=== PATIENT | female | born 1990 | race Hispanic/Latino ===

== ENCOUNTER 2017-01-18 11:22 | Emergency (ER) | payer OTHER ==
[~2017-01-18] VITALS: Ht 165.1 cm; Wt 56.3 kg
[2017-01-18] MEDS ORDERED: CLAR10CA3 PO (11:37)
[2017-01-18] MEDS ORDERED: SING10TA32 PO (11:37)
[2017-01-18] MEDS ORDERED: CALCTAB41 PO (11:37)
[2017-01-18] MEDS ORDERED: NS 1,000 ML IV ONE (11:45)
[2017-01-18 12:08] LABS: BASO % 0.2 % (0.0-1.0); EOS # 0.1 K/mm3 (0.0-0.50); EOS % 1.4 % (0.0-3.0); LARGE UNSTAINED CELL # 0.1 K/mm3 (0.0-0.4); LARGE UNSTAINED CELL % 1.1 % (0.0-4.0); LYMPH # 1.1 K/mm3 (1.5-6.5); LYMPH % 13.7 % (24.0-44.0); MEAN CORPUSCULAR HEMOGLOBIN 29.8 pg (27.0-33.0); MEAN CORPUSCULAR HGB CONC 33.4 g/dl (32.0-36.5); MEAN CORPUSCULAR VOLUME 89.2 fl (80.0-96.0); MONO # 0.4 K/mm3 (0.0-0.8); MONO % 4.6 % (0.0-5.0); NEUTROPHILS # 6.3 K/mm3 (1.8-7.7); PLATELET COUNT, AUTOMATED 216 k/mm3 (150-450); RED CELL DISTRIBUTION WIDTH 12.7 % (11.5-14.5)
[2017-01-18 12:13] LABS: CONTROL LINE HCG INT CTR LINE PRESENT
[2017-01-18 12:16] LABS: ANION GAP 6 MEQ/L (8-16); BLOOD UREA NITROGEN 11 MG/DL (7-18); CALCIUM LEVEL 8.7 MG/DL (8.5-10.1); CARBON DIOXIDE LEVEL 28 MEQ/L (21-32); CHLORIDE LEVEL 106 MEQ/L (98-107); CREATININE FOR GFR 0.84 MG/DL (0.55-1.02); GLOMERULAR FILTRATION RATE > 60.0 (>60); GLUCOSE, FASTING 87 MG/DL (70-105); POTASSIUM SERUM 3.7 MEQ/L (3.5-5.1); SODIUM LEVEL 140 MEQ/L (136-145)
--- NOTE | 2017-01-18 13:46 | REP ---
CHEST, TWO VIEWS: There is no evidence of acute infiltrate. No pleural effusion is seen. The heart is normal in size. The mediastinal silhouette is unremarkable. The visualized osseous structures are intact. IMPRESSION: No acute pulmonary disease. Signed by Mookie Pierce MD 01/18/2017 03:31 P
[2017-01-18 14:43] VITALS: O2SAT 98
[2017-01-18 14:49] VITALS: BP 109/65
--- NOTE | 2017-01-20 02:13 | ECGEPIP ---
Stationary ECG Study [facility] - ED Test Date: 2017-01-18 Pat Name: CASPER BRUNO Department: Room: - Gender: F Account Manager B2B: dennis : 1990 Requested By: Nohemy Mejia Order Number: [id number] Reading MD: Ricardo Reed Measurements Intervals [place] Rate: 50 P: 43 RI: 126 QRS: 53 QRSD: 85 T: 43 QT: 410 QTc: 377 Interpretive Statements SINUS BRADYCARDIA BENIGN EARLY REPLARIZATION NO PRIORS Electronically Signed On 01-20-2017 2:13:39 EDT by Ricardo Reed
== END 2017-01-18 14:51 | disposition home or self-care (01) ==
LOC: EDBD 11:22 → M ED 11:22
DX: R07.81 Pleurodynia (principal); R00.1 Bradycardia, unspecified; Z82.49 Family history of ischemic heart disease and other diseases of the circulatory system; Z84.89 Family history of other specified conditions; Z79.899 Other long term (current) drug therapy

== ENCOUNTER 2017-03-09 09:44 | Inpatient (IN) | payer OTHER ==
[~2017-03-09] VITALS: Ht 165.1 cm; Wt 132.0 kg
[~2017-03-09 09:44] MED LIST: CALCTAB41 PO; CLAR10CA3 PO; SING10TA32 PO
[2017-03-09] MEDS ORDERED: NAPR500T3 PO (09:54)
[2017-03-09] MEDS ORDERED: MULT1TAB10 PO (09:54)
[2017-03-09] MEDS ORDERED: CLAR1TAB2 PO (09:54)
[2017-03-09 11:13] LABS: MEAN CORPUSCULAR HEMOGLOBIN 31.7 pg (27.0-33.0); MEAN CORPUSCULAR HGB CONC 34.6 g/dl (32.0-36.5); MEAN CORPUSCULAR VOLUME 91.4 fl (80.0-96.0); RED CELL DISTRIBUTION WIDTH 12.6 % (11.5-14.5); WHITE BLOOD COUNT 5.3 K/mm3 (4.0-10.0)
[2017-03-09 11:28] LABS: METHADONE URINE NEGATIVE (NEGATIVE)
[2017-03-09 11:36] LABS: ALBUMIN 3.9 GM/DL (3.2-5.2); ALBUMIN/GLOBULIN RATIO 1.18 (1.00-1.93); ALKALINE PHOSPHATASE 81 U/L (45-117); ALT/SGPT 40 U/L (12-78); ANION GAP 7 MEQ/L (8-16); AST/SGOT 16 U/L (15-37); BILIRUBIN,DIRECT < 0.1 MG/DL (0.0-0.2); BILIRUBIN,TOTAL 0.3 MG/DL (0.2-1.0); BLOOD UREA NITROGEN 16 MG/DL (7-18); CALCIUM LEVEL 8.7 MG/DL (8.5-10.1); CARBON DIOXIDE LEVEL 29 MEQ/L (21-32); CHLORIDE LEVEL 107 MEQ/L (98-107); CREATININE FOR GFR 0.83 MG/DL (0.55-1.02); GLOMERULAR FILTRATION RATE > 60.0 (>60); GLUCOSE, FASTING 86 MG/DL (70-105); SODIUM LEVEL 143 MEQ/L (136-145); TOTAL PROTEIN 7.2 GM/DL (6.4-8.2)
[2017-03-09 12:23] LABS: CONTROL LINE HCG INT CTR LINE PRESENT
[2017-03-09] MEDS ORDERED: MAALOX 30 ML SUSP *UDC PO PRN (14:30)
[2017-03-09] MEDS ORDERED: ACETAMINOPHEN TAB 650MG DOSE (2X325MG) PO PRN (14:30)
[2017-03-09] MEDS ORDERED: MOM 30ML SUSPENSION UDC PO PRN (14:30)
[2017-03-09] MEDS ORDERED: LORazepam 1 MG TAB PO PRN (14:30)
[2017-03-09] MEDS ORDERED: traZODone 50 MG TAB PO PRN (14:30)
[2017-03-09 15:35] VITALS: BP 105/55
[2017-03-10 06:47] VITALS: BP 107/53
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
[2017-03-10 18:00] VITALS: BP 97/52
--- NOTE | 2017-03-11 03:10 | HPE ---
DATE OF ADMISSION: 03/09/2017 HISTORY OF PRESENT ILLNESS: Please refer to psychiatric history and evaluation for further details on this admission. This examination and history is intended for medical issues, which may need treatment, followup or consult on this 26-year-old female. ALLERGIES: No known allergies. PRIMARY CARE PROVIDER: She uses [facility] or [facility]. 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 Ethyl alcohol (EtOH) none. Smokes none. Recreational drug use none. PAST MEDICAL HISTORY: Seasonal allergies. PAST SURGICAL HISTORY: Negative. HOME MEDICATIONS: - loratadine 10 mg by mouth daily - Multivite one by mouth daily FAMILY HISTORY: Noncontributory. LABORATORY STUDIES: CBC was normal. Electrolytes normal. BUN and creatinine 16 and 0.83. Toxicology negative. REVIEW OF SYSTEMS: 10-system review was done, other than seasonal allergies, was unremarkable. She had no complaints. PHYSICAL EXAMINATION: 26-year-old cooperative female in no acute distress. Height 65 inches, weight 60 kg. Blood pressure 105/55, pulse 54, respirations 16, temperature 98. Patient is alert and oriented times three. Pupils equal and react to light. Extraocular muscles intact. Cornea and sclerae clear. Conjunctivae were normal. No facial asymmetry. Pharynx, tongue and gums pink and moist. Tongue is midline. Neck is supple without lymphadenopathy. No thyromegaly, no goiter. Chest clear to auscultation without wheeze or retraction. Heart is regular. Abdomen is benign. Bowel sounds positive. Genitourinary/rectal: Not done. Extremities: Show equal strength, full range of motion. No cyanosis, clubbing or edema. Peripheral pulses equal and palpable bilaterally. Skin is warm and dry. Cranial nerves III-XII grossly intact. IMPRESSION/PLAN: Psychiatric plan per psychiatry. Will continue her loratadine 10 mg by mouth daily for allergies. No other acute medical issues.
[2017-03-11 06:38] VITALS: BP 108/55
[2017-03-11] MEDS: LORATADINE 10 MG TAB PO SCH (09:00)
[2017-03-11 18:00] VITALS: BP 102/57
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
[2017-03-12 06:25] VITALS: BP 106/58
[2017-03-12] MEDS: LORATADINE 10 MG TAB PO SCH (09:00)
[2017-03-12 18:00] VITALS: BP 96/52
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
[2017-03-13 06:50] VITALS: BP 93/58
[2017-03-13] MEDS: LORATADINE 10 MG TAB PO SCH (09:00)
[2017-03-13] MEDS ORDERED: TRAZO50TA PO (09:50)
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
== END 2017-03-13 12:00 | disposition home or self-care (01) | DRG 885 ==
LOC: M ED 09:44 → M ED INP 14:14 → MERGE 14:14 → M PSY 15:03
PROVIDERS: ADMIT Psychiatry & Neurology Psychiatry; ATTEND Psychiatry & Neurology Psychiatry
DX: F39 Unspecified mood [affective] disorder (principal); F31.81 Bipolar II disorder; F60.89 Other specific personality disorders; Z79.899 Other long term (current) drug therapy

== ENCOUNTER 2017-04-13 08:03 | Emergency (ER) | payer OTHER ==
[~2017-04-13] VITALS: Ht 165.1 cm; Wt 60.5 kg
[~2017-04-13 08:03] MED LIST changes: +CLAR1TAB2 PO; +MULT1TAB10 PO; +NAPR500T3 PO; +TRAZO50TA PO
[2017-04-13 10:15] LABS: BASO % 0.2 % (0.0-1.0); EOS # 0.2 10^3/uL (0.0-0.50); EOS % 2.2 % (0.0-3.0); IMMATURE GRANULOCYTE % 0.2 % (0-0); LYMPH # 1.1 10^3/uL (1.5-6.5); LYMPH % 12.8 % (24.0-44.0); MEAN CORPUSCULAR HEMOGLOBIN 30.3 pg (27.0-33.0); MEAN CORPUSCULAR HGB CONC 33.6 g/dl (32.0-36.5); MEAN CORPUSCULAR VOLUME 90.1 fl (80.0-96.0); MONO # 0.7 10^3/uL (0.0-0.8); MONO % 8.8 % (0.0-5.0); NEUTROPHILS # 6.3 10^3/uL (1.8-7.7); NEUTROPHILS % 75.8 % (36.0-66.0); PLATELET COUNT, AUTOMATED 242 10^3/uL (150-450); RED CELL DISTRIBUTION WIDTH 12.4 % (11.5-14.5); WHITE BLOOD COUNT 8.3 10^3/uL (4.0-10.0)
[2017-04-13] MEDS ORDERED: CEPA5.4L2 MT (10:40)
[2017-04-13] MEDS ORDERED: BENZ100C5 PO (10:40)
[2017-04-13] MEDS ORDERED: IBUP-1022 PO (10:41)
[2017-04-13 11:13] VITALS: BP 124/72
== END 2017-04-13 11:14 | disposition home or self-care (01) ==
LOC: M ED 08:03
DX: J06.9 Acute upper respiratory infection, unspecified (principal); Z79.899 Other long term (current) drug therapy

== ENCOUNTER 2017-05-26 08:26 | Emergency (ER) | payer OTHER ==
[~2017-05-26] VITALS: Ht 167.6 cm; Wt 58.1 kg
[~2017-05-26 08:26] MED LIST changes: +BENZ100C5 PO; +CEPA5.4L2 MT; +IBUP-1022 PO
[2017-05-26 09:36] LABS: BASO % 0.3 % (0.0-1.0); EOS # 0.1 10^3/uL (0.0-0.50); EOS % 1.3 % (0.0-3.0); IMMATURE GRANULOCYTE % 0.2 % (0-0); LYMPH # 1.8 10^3/uL (1.5-6.5); LYMPH % 30.9 % (24.0-44.0); MEAN CORPUSCULAR HEMOGLOBIN 29.6 pg (27.0-33.0); MEAN CORPUSCULAR HGB CONC 33.4 g/dl (32.0-36.5); MEAN CORPUSCULAR VOLUME 88.6 fl (80.0-96.0); MONO # 0.6 10^3/uL (0.0-0.8); MONO % 9.7 % (0.0-5.0); NEUTROPHILS # 3.4 10^3/uL (1.8-7.7); NEUTROPHILS % 57.6 % (36.0-66.0); PLATELET COUNT, AUTOMATED 237 10^3/uL (150-450); RED CELL DISTRIBUTION WIDTH 12.3 % (11.5-14.5)
[2017-05-26 09:54] LABS: CONTROL LINE HCG INT CTR LINE PRESENT
[2017-05-26 10:02] LABS: ALBUMIN/GLOBULIN RATIO 1.03 (1.00-1.93); ALKALINE PHOSPHATASE 85 U/L (45-117); ALT/SGPT 22 U/L (12-78); ANION GAP 7 MEQ/L (8-16); AST/SGOT 16 U/L (7-37); BILIRUBIN,DIRECT 0.1 MG/DL (0.0-0.2); BILIRUBIN,TOTAL 0.4 MG/DL (0.2-1.0); BLOOD UREA NITROGEN 13 MG/DL (7-18); CALCIUM LEVEL 9.1 MG/DL (8.5-10.1); CARBON DIOXIDE LEVEL 27 MEQ/L (21-32); CHLORIDE LEVEL 105 MEQ/L (98-107); CREATININE FOR GFR 0.85 MG/DL (0.55-1.02); GLOMERULAR FILTRATION RATE > 60.0 (>60); GLUCOSE, FASTING 95 MG/DL (70-105); POTASSIUM SERUM 4.2 MEQ/L (3.5-5.1); SODIUM LEVEL 139 MEQ/L (136-145); TOTAL PROTEIN 7.9 GM/DL (6.4-8.2)
[2017-05-26 12:38] VITALS: BP 111/69
[2017-05-26] MEDS ORDERED: ONDA4INJ48 IM (12:43)
[2017-05-26] MEDS ORDERED: NAPR500T3 PO (12:43)
--- NOTE | 2017-05-26 12:46 | REP ---
NON-OB PELVIC ULTRASOUND: HISTORY: Abdominal pain. The uterus is normal in size. The uterus measures 5.2 cm in transverse x 3.9 cm in AP x 8 cm in cephalocaudal dimensions. The endometrium measures 11.3 mm. The right ovary measures 4.3 x 2.5 x 2.9 cm. The left ovary measures 3.7 x 2.8 x 2.9 cm. A mild amount of fluid is present in the cul-de-sac. There are no filling defects in the urinary bladder. IMPRESSION: There is a mild amount of fluid in the cul-de-sac. Signed by Mike Ann MD 05/26/2017 01:19 P
[2017-05-26] MEDS ORDERED: ZOFR4TAB3 PO (12:51)
== END 2017-05-26 12:53 | disposition home or self-care (01) ==
LOC: M ED 08:26
DX: N94.6 Dysmenorrhea, unspecified (principal); Z79.899 Other long term (current) drug therapy

== ENCOUNTER 2017-05-30 18:46 | Emergency (ER) | payer OTHER ==
[~2017-05-30] VITALS: Ht 167.6 cm; Wt 56.8 kg
[~2017-05-30 18:46] MED LIST changes: +ONDA4INJ48 IM; +ZOFR4TAB3 PO
[2017-05-30] MEDS ORDERED: IBUP-1114 PO (18:55)
[2017-05-30] MEDS ORDERED: TYLE325T5 PO (18:55)
[2017-05-30 21:12] VITALS: BP 115/72
--- NOTE | 2017-05-31 08:13 | REP ---
Bilateral ribs four views: There is no rib fracture or other rib abnormality on the right on the left. PA chest: There is no pneumothorax, hemothorax or pulmonary contusion. Lung stanley are clear. Cardiac size is normal. The jamal, mediastinum, and bony thorax are unremarkable. There is no change from the comparison study dated 01/18/2017. Impression: Negative PA chest. Signed by Mookie Alejandre MD 05/31/2017 08:05 A
== END 2017-05-30 21:05 | disposition home or self-care (01) ==
LOC: M ED 18:46
DX: S20.211A Contusion of right front wall of thorax, initial encounter (principal); S20.212A Contusion of left front wall of thorax, initial encounter; Y04.8XXA Assault by other bodily force, initial encounter; Y92.139 Unspecified place military base as the place of occurrence of the external cause; Y93.89 Activity, other specified; Y99.8 Other external cause status

== ENCOUNTER 2017-08-05 18:59 | Emergency (ER) | payer OTHER | END 2017-08-05 22:45 | disposition left against medical advice (07) | LOC: M ED 18:59 | DX: R29.6 Repeated falls (principal); Z53.21 Procedure and treatment not carried out due to patient leaving prior to being seen by health care provider ==

== ENCOUNTER 2017-08-06 06:37 | Emergency (ER) | payer OTHER ==
[2017-08-06 08:19] LABS: KETONE, URINE AUTO RFX NEGATIVE (NEGATIVE); LEUKOCYTE ESTERASE UR AUTO RFX NEGATIVE (NEGATIVE); MUCUS, URINE RFX SMALL (NEGATIVE); NITRITE, URINE AUTO RFX NEGATIVE (NEGATIVE); RBC, URINE AUTO RFX 2 /HPF (0-3); SPECIFIC GRAVITY UR AUTO RFX 1.019 (1.002-1.035); SQUAM EPITHELIAL CELL UR AURFX 3 /HPF (0-6); WBC, URINE AUTO RFX 0 /HPF (0-3)
== END 2017-08-06 10:19 | disposition home or self-care (01) ==
LOC: M ED 06:37
DX: O9A.211 Injury, poisoning and certain other consequences of external causes complicating pregnancy, first trimester (principal); S30.0XXA Contusion of lower back and pelvis, initial encounter; S33.8XXA Sprain of other parts of lumbar spine and pelvis, initial encounter; W01.0XXA Fall on same level from slipping, tripping and stumbling without subsequent striking against object, initial encounter; Y92.89 Other specified places as the place of occurrence of the external cause; Z3A.09 9 weeks gestation of pregnancy
CPT/HCPCS: 76801

== ENCOUNTER 2017-11-03 16:02 | Emergency (ER) | payer OTHER | END 2017-11-03 19:03 | disposition home or self-care (01) | LOC: M ED 16:02 | DX: S40.021A Contusion of right upper arm, initial encounter (principal); S40.022A Contusion of left upper arm, initial encounter; S30.1XXA Contusion of abdominal wall, initial encounter; Y04.8XXA Assault by other bodily force, initial encounter; Y07.01 Husband, perpetrator of maltreatment and neglect; Y92.009 Unspecified place in unspecified non-institutional (private) residence as the place of occurrence of the external cause; Z3A.21 21 weeks gestation of pregnancy | CPT/HCPCS: 76816 ==

== ENCOUNTER 2017-12-28 19:52 | Outpatient (CLI) | payer OTHER | END 2017-12-28 20:40 | disposition home or self-care (01) | LOC: M LDO 19:52 | DX: O26.893 Other specified pregnancy related conditions, third trimester (principal); Z3A.29 29 weeks gestation of pregnancy | CPT/HCPCS: G0463 ==

== ENCOUNTER 2018-01-19 11:33 | Outpatient (CLI) | payer OTHER | END 2018-01-19 12:47 | disposition home or self-care (01) | LOC: M LDO 11:33 | DX: O26.853 Spotting complicating pregnancy, third trimester (principal); Z3A.32 32 weeks gestation of pregnancy | CPT/HCPCS: 59025 ==

== ENCOUNTER 2018-01-21 15:03 | Outpatient (CLI) | payer OTHER | END 2018-01-21 16:30 | disposition home or self-care (01) | LOC: M LDO 15:03 | DX: O47.03 False labor before 37 completed weeks of gestation, third trimester (principal); Z3A.33 33 weeks gestation of pregnancy; Z63.0 Problems in relationship with spouse or partner | CPT/HCPCS: 59025 ==

== ENCOUNTER 2018-02-15 09:18 | Outpatient (CLI) | payer OTHER ==
[2018-02-15 10:40] LABS: HEMATOCRIT 32.6 % (36.0-47.0); HEMOGLOBIN 11.2 g/dl (12.0-15.5); MEAN CORPUSCULAR HEMOGLOBIN 31.8 pg (27.0-33.0); MEAN CORPUSCULAR HGB CONC 34.4 g/dl (32.0-36.5); MEAN CORPUSCULAR VOLUME 92.6 fl (80.0-96.0); PLATELET COUNT, AUTOMATED 184 10^3/uL (150-450); RED BLOOD COUNT 3.52 10^6/uL (4.00-5.40); RED CELL DISTRIBUTION WIDTH 12.8 % (11.5-14.5); WHITE BLOOD COUNT 7.6 10^3/uL (4.0-10.0)
== END 2018-02-15 11:50 | disposition home or self-care (01) ==
LOC: M LDO 09:18
DX: Z04.3 Encounter for examination and observation following other accident (principal); W10.8XXA Fall (on) (from) other stairs and steps, initial encounter; Y92.89 Other specified places as the place of occurrence of the external cause; Y93.89 Activity, other specified; Y99.8 Other external cause status; Z3A.37 37 weeks gestation of pregnancy
CPT/HCPCS: 59025

== ENCOUNTER 2018-03-05 02:00 | Inpatient (IN) | payer OTHER ==
[2018-03-05] MEDS: PENICILLIN G POTASSIUM IV 5 MU in D5W MINI-BAG PLUS 100 ML IV (03:25)
[2018-03-05 03:34] LABS: HEMATOCRIT 34.1 % (36.0-47.0); HEMOGLOBIN 11.8 g/dl (12.0-15.5); MEAN CORPUSCULAR HEMOGLOBIN 31.4 pg (27.0-33.0); MEAN CORPUSCULAR HGB CONC 34.6 g/dl (32.0-36.5); MEAN CORPUSCULAR VOLUME 90.7 fl (80.0-96.0); PLATELET COUNT, AUTOMATED 206 10^3/uL (150-450); RED BLOOD COUNT 3.76 10^6/uL (4.00-5.40); RED CELL DISTRIBUTION WIDTH 12.7 % (11.5-14.5); WHITE BLOOD COUNT 11.8 10^3/uL (4.0-10.0)
[2018-03-05] MEDS: LR 1,000 ML IV ×4 (06:22→17:15)
[2018-03-05] MEDS ORDERED: OXYTOCIN 30 UNITS IN 0.9% NaCl 500ML IV BAG (J2590) As Ordered (06:28)
[2018-03-05] MEDS: OXYTOCIN DRIP 30 UNITS in APPROPRIATE DILUENT 1 EA IV (06:54)
[2018-03-05] MEDS ORDERED: TERBUTALINE SULFATE 1 MG/ML VIAL (J3105) As Ordered (07:25)
[2018-03-05] MEDS ORDERED: PENICILLIN G POTASSIUM IV 2.5 MU in APPROPRIATE DILUENT 1 EA IV (07:30)
[2018-03-05] MEDS ORDERED: dexameTHASONE 4 MG/ML 1ML VIAL (J1100) As Ordered (07:57)
[2018-03-05] MEDS ORDERED: OXYTOCIN INJ 10 UNITS/ML VIAL (J2590) As Ordered ×5 (07:57→08:00)
[2018-03-05] MEDS ORDERED: ONDANSETRON 4MG/2ML VIAL (J2405) As Ordered (07:57)
[2018-03-05] MEDS ORDERED: SUCCINYLCHOLINE 100 MG/5 ML SYRINGE (J0330) As Ordered (07:57)
[2018-03-05] MEDS ORDERED: KETOROLAC 60 MG/2 ML VIAL (J1885) As Ordered (07:57)
[2018-03-05] MEDS ORDERED: ROCURONIUM BROMIDE 50 MG/5 ML VIAL As Ordered (07:57)
[2018-03-05] MEDS ORDERED: MIDAZOLAM INJ 2 MG/2 ML VIAL (J2250) As Ordered ×2 (07:57→08:13)
[2018-03-05] MEDS ORDERED: fentaNYL 100 MCG/2 ML INJECTION (J3010) As Ordered (07:57)
[2018-03-05] MEDS ORDERED: ePHEDrine SULFATE 25 MG/5 ML(5MG/ML) SYRINGE As Ordered (08:06)
[2018-03-05 08:09] LABS: CORD GAS ABE A -4.7; CORD GAS HCO3 A 25.5 MEQ/L; CORD GAS O2 SAT A 48.3 %; CORD GAS PCO2 A 71.4 mmHg; CORD GAS PH A 7.171 UNITS; CORD GAS PO2 A 24.7 mmHg; CORD GAS SBC A 19.5 MEQ/L; CORD GAS TCO2 A 27.7 MEQ/L
[2018-03-05 08:13] LABS: CORD GAS ABE V -5.2; CORD GAS O2 SAT V 74.1 %; CORD GAS PCO2 V 55.5 mmHg; CORD GAS PH V 7.236 UNITS; CORD GAS PO2 V 34.8 mmHg; CORD GAS SBC V 19.7 MEQ/L; CORD GAS TCO2 V 24.7 MEQ/L
[2018-03-05] MEDS ORDERED: MORPHINE 1MG/ML IN 0.9% NACL 100ML IV BAG As Ordered ×2 (08:14→08:45)
[2018-03-05] MEDS ORDERED: DOCUSATE SODIUM 100 MG CAP PO (08:45)
[2018-03-05] MEDS ORDERED: ANUSOL HC CREAM 30GM TOP (08:45)
[2018-03-05] MEDS ORDERED: PERCOCET 5MG/325MG TAB PO (08:45)
[2018-03-05] MEDS ORDERED: MOM 30ML SUSPENSION UDC PO (08:45)
[2018-03-05] MEDS ORDERED: PERCOCET 5MG/325MG TAB As Ordered ×2 (08:53→09:25)
[2018-03-05] MEDS: PERCOCET 5MG/325MG TAB PO ×2 (08:58→09:30)
[2018-03-05] MEDS ORDERED: NALOXONE INJ 0.4 MG/1 ML VIAL (J2310) IV (09:45)
[2018-03-05] MEDS ORDERED: ONDANSETRON 4MG/2ML VIAL (J2405) IV ×2 (09:45)
[2018-03-05] MEDS ORDERED: MORPHINE 1MG/ML IN 0.9% NACL 100ML IV BAG IV (09:45)
[2018-03-05] MEDS ORDERED: NALBUPHINE HCL 10 MG/ML AMP (J2300) IV ×2 (09:45)
[2018-03-05] MEDS ORDERED: METOCLOPRAMIDE INJ 10MG/2ML VIAL (J2765) IV (09:45)
[2018-03-05] MEDS ORDERED: diphenhydrAMINE INJ 50MG/ML VIAL (J1200) IV (09:45)
[2018-03-05] MEDS ORDERED: fentaNYL 100 MCG/2 ML INJECTION (J3010) IV (09:45)
[2018-03-05] MEDS ORDERED: EPIDURAL/PCA KEYS XX (09:45)
[2018-03-05] MEDS: PRENATAL VITAMINS CHEWABLE TABLET PO (10:29)
[2018-03-05] MEDS: IBUPROFEN 800 MG TAB PO (15:36)
[2018-03-06] MEDS: IBUPROFEN 800 MG TAB PO ×3 (00:28→15:00)
[2018-03-06] MEDS: PERCOCET 5MG/325MG TAB PO ×4 (02:40→20:58)
[2018-03-06 07:00] LABS: HEMATOCRIT 31.8 % (36.0-47.0); HEMOGLOBIN 10.8 g/dl (12.0-15.5); MEAN CORPUSCULAR HEMOGLOBIN 31.2 pg (27.0-33.0); MEAN CORPUSCULAR VOLUME 91.9 fl (80.0-96.0); PLATELET COUNT, AUTOMATED 190 10^3/uL (150-450); RED BLOOD COUNT 3.46 10^6/uL (4.00-5.40); RED CELL DISTRIBUTION WIDTH 12.9 % (11.5-14.5); WHITE BLOOD COUNT 13.5 10^3/uL (4.0-10.0)
[2018-03-06] MEDS: PRENATAL VITAMINS CHEWABLE TABLET PO (08:24)
[2018-03-07] MEDS: IBUPROFEN 800 MG TAB PO ×2 (00:35→08:26)
[2018-03-07] MEDS: MEASLES,MUMPS,RUBELLA VACCINE INJ (MMR-II) (90707) SC (07:21)
[2018-03-07] MEDS: RHOGAM 300 MCG (1500 IU) INJ (J2790) IM (07:21)
[2018-03-07] MEDS: PRENATAL VITAMINS CHEWABLE TABLET PO (08:26)
== END 2018-03-07 13:10 | disposition home or self-care (01) | DRG 766 ==
LOC: M LDO 02:00 → M LDI 02:52 → M OBS 09:47
PROVIDERS: Obstetrics & Gynecology
PROC: 10D00Z1 Extraction of Products of Conception, Low, Open Approach (ICD-10-PCS; principal; 2018-03-05 07:32)
DX: O76 Abnormality in fetal heart rate and rhythm complicating labor and delivery (principal); Z37.0 Single live birth; Z3A.39 39 weeks gestation of pregnancy; O99.820 Streptococcus B carrier state complicating pregnancy

== ENCOUNTER 2018-03-13 07:08 | Emergency (ER) | payer OTHER | END 2018-03-13 08:43 | disposition home or self-care (01) | LOC: M ED 07:08 | DX: G89.18 Other acute postprocedural pain (principal); Z79.899 Other long term (current) drug therapy | CPT/HCPCS: 99283 ==

== ENCOUNTER 2018-04-04 11:01 | Emergency (ER) | payer OTHER ==
[2018-04-04 11:49] LABS: BASO % 0.4 % (0.0-1.0); EOS # 0.2 10^3/uL (0.0-0.50); EOS % 3.1 % (0.0-3.0); HEMATOCRIT 36.9 % (36.0-47.0); HEMOGLOBIN 12.2 g/dl (12.0-15.5); IMMATURE GRANULOCYTE % 0.3 % (0-3.0); LYMPH # 1.5 10^3/uL (1.5-6.5); LYMPH % 18.8 % (24.0-44.0); MEAN CORPUSCULAR HEMOGLOBIN 30.1 pg (27.0-33.0); MEAN CORPUSCULAR HGB CONC 33.1 g/dl (32.0-36.5); MEAN CORPUSCULAR VOLUME 91.1 fl (80.0-96.0); MONO # 0.5 10^3/uL (0.0-0.8); MONO % 6.9 % (0.0-5.0); NEUTROPHILS # 5.5 10^3/uL (1.8-7.7); NEUTROPHILS % 70.5 % (36.0-66.0); PLATELET COUNT, AUTOMATED 247 10^3/uL (150-450); RED BLOOD COUNT 4.05 10^6/uL (4.00-5.40); RED CELL DISTRIBUTION WIDTH 12.1 % (11.5-14.5); WHITE BLOOD COUNT 7.8 10^3/uL (4.0-10.0)
[2018-04-04 12:00] LABS: INR 0.99; PROTHROMBIN TIME 13.2 SECONDS (12.1-14.4)
[2018-04-04 12:01] LABS: PARTIAL THROMBOPLASTIN TIME 38.8 SECONDS (25.4-37.6)
[2018-04-04 12:03] LABS: D-DIMER QUANT 399.7 ng/ml (<500)
[2018-04-04 12:24] LABS: ALBUMIN 3.2 GM/DL (3.2-5.2); ALBUMIN/GLOBULIN RATIO 0.82 (1.00-1.93); ALKALINE PHOSPHATASE 82 U/L (45-117); ALT/SGPT 18 U/L (12-78); ANION GAP 6 MEQ/L (8-16); AST/SGOT 16 U/L (7-37); BILIRUBIN,DIRECT 0.1 MG/DL (0.0-0.2); BILIRUBIN,TOTAL 0.4 MG/DL (0.2-1.0); BLOOD UREA NITROGEN 5 MG/DL (7-18); CALCIUM LEVEL 8.4 MG/DL (8.5-10.1); CARBON DIOXIDE LEVEL 28 MEQ/L (21-32); CHLORIDE LEVEL 106 MEQ/L (98-107); CK-MB VALUE MASS < 1.0 NG/ML (<3.6); CPK CREATINE PHOSPHOKINASE 53 U/L (26-192); CREATININE FOR GFR 0.75 MG/DL (0.55-1.30); GLOMERULAR FILTRATION RATE > 60.0 (>60); GLUCOSE, FASTING 83 MG/DL (70-100); LIPASE 60 U/L (73-393); MB/CK RELATIVE INDEX 1.89 (< OR =4); POTASSIUM SERUM 3.7 MEQ/L (3.5-5.1); SODIUM LEVEL 140 MEQ/L (136-145); THYROID STIMULATING HORMONE 0.452 uIU/ML (0.358-3.740); TOTAL PROTEIN 7.1 GM/DL (6.4-8.2); TROPONIN I < 0.02 NG/ML (< 0.10)
[2018-04-04 17:45] LABS: CK-MB VALUE MASS < 1.0 NG/ML (<3.6); CPK CREATINE PHOSPHOKINASE 50 U/L (26-192); TROPONIN I < 0.02 NG/ML (< 0.10)
== END 2018-04-04 18:49 | disposition home or self-care (01) ==
LOC: M ED 11:01
DX: O99.89 Other specified diseases and conditions complicating pregnancy, childbirth and the puerperium (principal); R07.9 Chest pain, unspecified; Z79.899 Other long term (current) drug therapy
CPT/HCPCS: 71046